=== PATIENT | male | born 1995 | race Caucasian/White ===

== ENCOUNTER 2016-10-22 05:58 | Day surgery (SDC) | payer OTHER ==
[2016-10-22 07:15] LABS: HEMATOCRIT 48.2 % (37.9-51.0); HEMOGLOBIN 16.3 g/dL (13.5-17.0); HGB HCT DIFFERENCE 0.7; MEAN CORPUSCULAR HEMOGLOBIN 30.1 pg (27.0-33.4); MEAN CORPUSCULAR HGB CONC 33.9 g/dL (32.0-36.0); MEAN CORPUSCULAR VOLUME 89 fl (80-97); RED BLOOD COUNT 5.42 10^6/uL (4.35-5.55); RED CELL DISTRIBUTION WIDTH 13.5 % (11.5-14.0); WHITE BLOOD COUNT 8.6 10^3/uL (4.0-10.5)
[2016-10-22 07:26] LABS: BLOOD UREA NITROGEN 24 mg/dL (7-20); CREATININE RESULT 1.32 mg/dL (0.52-1.25)
[2016-10-22 07:28] LABS: PROTHROMBIN TIME 12.9 SEC (11.4-15.4)
[2016-10-22 07:29] LABS: PARTIAL THROMBOPLASTIN TIME 34.1 SEC (23.5-35.8)
[2016-10-22] MEDS ORDERED: MIDAZOLAM 2 MG/2 ML INJ ONE (08:21)
[2016-10-22] MEDS ORDERED: FENTANYL CITRATE INJ/PF 100 MCG/2 ML AMPUL ONE (08:22)
[2016-10-22 13:44] VITALS: BP 114/57
== END 2016-10-22 11:30 | disposition home or self-care (01) ==
LOC: RAD 05:58
PROVIDERS: ATTEND Internal Medicine Nephrology
PROC: 0TB33ZX Excision of Right Kidney Pelvis, Percutaneous Approach, Diagnostic (ICD-10-PCS; principal; 2016-10-22)
DX: N05.9 Unspecified nephritic syndrome with unspecified morphologic changes (principal); I70.90 Unspecified atherosclerosis; N04.9 Nephrotic syndrome with unspecified morphologic changes; I10 Essential (primary) hypertension; R80.9 Proteinuria, unspecified; F17.210 Nicotine dependence, cigarettes, uncomplicated
CPT/HCPCS: 36415; 84520; 82565; 85027; 85610; 85730; 88346; 88348 ×2; 88313 ×2; 77012; 50200; J2250; J3010